=== PATIENT | female | born 1970 | race Caucasian/White ===

== ENCOUNTER 2017-10-28 08:22 | Day surgery (SDC) | payer OTHER ==
[~2017-10-28] VITALS: Ht 170.2 cm; Wt 78.5 kg
[~2017-10-28 08:22] MED LIST: BUPIVACAINE/PF-EPI 0.5% 1:200K ONE; CALCIUM PO; ESTR1PAT79 TP; LEVO137T2 PO; MAG PO; MULT-516 PO; VITAMIN B12 PO
[2017-10-28] MEDS ORDERED: LACTATED RINGERS 1,000 ML IV SCH ×2 (08:44→10:16)
[2017-10-28 08:46] VITALS: BP 140/76
[2017-10-28] MEDS ORDERED: FENTANYL PF 100 MCG/2ML ONE ×2 (09:31→10:22)
[2017-10-28] MEDS ORDERED: MIDAZOLAM 1 MG/ML, 2ML ONE (09:31)
[2017-10-28] MEDS ORDERED: NEOSTIGMINE 1 MG/ML, 10ML ONE (09:35)
[2017-10-28] MEDS ORDERED: ONDANSETRON 2MG/ML, 2ML ONE (09:35)
[2017-10-28] MEDS ORDERED: ROCURONIUM 10 MG/ML,10ML ONE (09:35)
[2017-10-28] MEDS ORDERED: DEXAMETHASONE 4 MG/ML, 1ML ONE (09:35)
[2017-10-28] MEDS ORDERED: CEFAZOLIN 1,000 MG ONE (09:35)
[2017-10-28] MEDS ORDERED: GLYCOPYRROLATE 0.2MG/1ML, 5ML ONE (09:35)
[2017-10-28] MEDS ORDERED: PROPOFOL 10 MG/ML, 20ML ONE (09:35)
[2017-10-28] MEDS ORDERED: SUCCINYLCHOLINE 20 MG/ML, 10ML ONE (09:35)
[2017-10-28] MEDS ORDERED: KETOROLAC 30 MG/1 ML ONE (09:35)
[2017-10-28] MEDS ORDERED: ALBUTEROL SULFATE 2.5 MG/3 ML NPPB PRN (10:00)
[2017-10-28] MEDS ORDERED: MIDAZOLAM 1 MG/ML, 2ML IV PRN (10:00)
[2017-10-28] MEDS ORDERED: METOPROLOL 1 MG/ML, 5ML IV PRN (10:00)
[2017-10-28] MEDS ORDERED: FENTANYL PF 100 MCG/2ML IV PRN (10:00)
[2017-10-28] MEDS ORDERED: MEPERIDINE/PF 25MG/0.5ML IVPush PRN (10:00)
[2017-10-28] MEDS ORDERED: hydrALAzine 20 MG/ML, 1ML IV PRN (10:00)
[2017-10-28] MEDS ORDERED: MORPHINE SULFATE 4 MG/ML, 1ML IVPush PRN (10:00)
[2017-10-28] MEDS ORDERED: HYDROmorphone 2 MG/ML, 1ML IV PRN (10:00)
[2017-10-28] MEDS ORDERED: PROMETHAZINE 12.5 MG SUPP PR PRN (10:00)
[2017-10-28] MEDS ORDERED: OXYcodone 5 MG/5 ML ORAL.SOL UDC PO PRN (10:00)
[2017-10-28] MEDS ORDERED: EPHEDRINE 50 MG/ML, 1ML IVPush PRN (10:00)
[2017-10-28] MEDS ORDERED: METOCLOPRAMIDE 5 MG/ML, 2ML IV PRN (10:00)
[2017-10-28] MEDS ORDERED: LABETALOL 5MG/ML, 20ML IV PRN (10:00)
[2017-10-28] MEDS ORDERED: LORazepam 2 MG/ML, 1ML IVPush PRN (10:00)
[2017-10-28] MEDS ORDERED: ACETAMINOPHEN 325 MG TABLET PO PRN (10:00)
[2017-10-28] MEDS ORDERED: PROMETHAZINE 25 MG/ML, 1ML IV PRN (10:00)
[2017-10-28] MEDS ORDERED: ACETAMINOPHEN 650 MG/20.3 ML UDC ONE (10:22)
[2017-10-28] MEDS ORDERED: OXYcodone 5 MG/5 ML ORAL.SOL UDC ONE (10:23)
[2017-10-28] MEDS ORDERED: METOCLOPRAMIDE 5 MG/ML, 2ML ONE (10:27)
[2017-10-28] MEDS ORDERED: morphine SULFATE 10 MG/ML, 1ML IVPush PRN (10:30)
[2017-10-28] MEDS ORDERED: ONDANSETRON 2MG/ML, 2ML IVPush PRN (10:30)
[2017-10-28] MEDS ORDERED: HYDROcodone/APAP 5/325 TABLET PO PRN (10:30)
[2017-10-28] MEDS ORDERED: PROMETHAZINE 25 MG/ML, 1ML ONE (10:32)
[2017-10-28] MEDS ORDERED: MEPERIDINE/PF 50 MG/ML ONE (10:36)
== END 2017-10-28 14:10 | disposition home or self-care (01) ==
LOC: OUT 08:22 → EDSTATUS 10:00 → OUT 14:10
PROVIDERS: ATTEND Thoracic Surgery (Cardiothoracic Vascular Surgery)
DX: K81.1 Chronic cholecystitis (principal); E03.9 Hypothyroidism, unspecified; E89.0 Postprocedural hypothyroidism; Z88.8 Allergy status to other drugs, medicaments and biological substances; Z98.890 Other specified postprocedural states; Z90.710 Acquired absence of both cervix and uterus; Z72.89 Other problems related to lifestyle
CPT/HCPCS: 47562; 88304; J0330; J0690; J1100; J1885; J2175; J2250; J2405; J2550; J2704; J2710; J2765; J3010; J3490; J7120